=== PATIENT | female | born 1995 ===

== ENCOUNTER 2024-07-16 11:48 | Emergency (ER) | payer SELFPAY ==
[2024-07-16 11:50] VITALS: BP 139/92; PULSE 110; RESP 18; TEMP 36.4; O2SAT 98
--- NOTE | 2024-07-16 11:53 | ECG_ITS ---
Test Date: 2024-07-16 11:55:31 Measurements Intervals [place] Rate: 107 P: 65 [place]: 139 QRS: 9 QRSD: 92 T: 10 QT: 329 QTc: 440 Interpretive Statements SINUS TACHYCARDIA OTHERWISE NORMAL ELECTROCARDIOGRAM No previous ECG available for comparison Electronically Signed On 07-17-2024 07:47:20 CDT by Silverio Sanches M.D.
--- NOTE | 2024-07-16 14:43 | PC.NURSE ---
Not found when called for in triage.
== END 2024-07-16 14:43 | disposition left against medical advice (07) ==
LOC: ANHED 16:13
PROVIDERS: Emergency Provider Emergency Medicine
DX: R42 Dizziness and giddiness (principal)
CPT/HCPCS: 93005; 99199